=== PATIENT | female | born 2000 | race Caucasian/White ===

== ENCOUNTER 2024-10-14 07:38 | Emergency (ER) | payer MEDICAID, SELFPAY ==
[2024-10-14 07:40] VITALS: BMI 20.9
[2024-10-14 07:49] VITALS: BP 103/71; PULSE 92; RESP 18; TEMP 37.5; O2SAT 96; BMI 20.9
--- NOTE | 2024-10-14 07:59 | XR_ITS ---
Examination: PA lateral chest 2 views TECHNIQUE: Upright PA lateral chest 2 views Exam date and time: October 14, 2024 0831 hours INDICATIONS: Flu symptoms 3 days FINDINGS: Normal heart size No pneumonia or pulmonary edema Mild upper thoracic dextroscoliosis IMPRESSION: No pneumonia or pulmonary edema
[2024-10-14 08:49] LABS: Strep A Rapid Negative (Negative)
--- NOTE | 2024-10-14 09:43 | EDNOTE_ITS ---
<Statement entered by Yin Guerra MD - 10/25/24 06:19> As co-signing physician, I was present and available for consult prn. I concur with the plan and care as documented by the midlevel provider. Upper Respiratory Inf. RME/HPI General Chief Complaint: Flu Like Symptoms Stated Complaint: FLU SYMPTOMS X2 DAYS Time Seen by Provider: 10/14/24 07:46 Arrival date/time: 10/14/24 07:38 24-year-old female presents to the department today for complaint of cough, congestion runny nose ongoing for the last 2 days Limitations: no limitations Related Data Home Medications ?Medication ?Instructions ?Recorded ?Confirmed bupropion HCl 300 mg 24 hr tablet, 300 mg PO DAILY 08/2102/01/23 extended release empagliflozin 10 mg tablet 10 mg PO DAILY 02/01/2308/21 (Jardiance) levothyroxine 100 mcg tablet 100 mcg PO DAILY 02/01/23 02/01/23 norethindrone (contraceptive) 0.35 0.35 mg PO DAILY 02/01/23 mg tablet (Estela) Previous Rx's ?Medication ?Instructions ?Recorded fludrocortisone 0.1 mg tablet 0.1 mg PO QDAY 30 days # 30 tabs 02/05/23 hydrocortisone 10 mg tablet 10 mg PO QDAY 30 days #30 tabs 02/05/23 levofloxacin 500 mg tablet 500 mg PO QDAY #4 tabs 03/03 06/23 hydrocortisone 10 mg tablet 10 mg PO BID #30 tabs 07/30 10/22 albuterol sulfate 90 mcg/actuation 2 puff inhalation Q 6H PRN 10/14/24 aerosol inhaler (Ventolin HFA) shortness of breath or wheezing #8.5 grams benzonatate 100 mg capsule 100 mg PO TID #14 caps 09/29 11/23 Allergies Allergy/AdvReac Type Severity Reaction Status Date / Time piperacillin (From Zosyn) Allergy Rash Verified 11/28/23 18:30 tazobactam (From Zosyn) Allergy Rash Verified 11/28/23 18:30 Bee Stings Allergy Unknown SWELLING Uncoded 11/28/23 18:30 Review of Systems Review of Systems Systems Reviewed: All systems reviewed, normal except as documented Constitutional Constitutional: Reports system reviewed and no additional complaints, except as documented, Denies fever(s) and Denies headache(s) Eyes Eyes: Reports system reviewed and no additional complaints, except as documented and Denies blurry vision ENT Ears, Nose, Mouth, and Throat: Reports system reviewed and no additional complaints, except as documented, Denies headache(s), Reports nasal congestion and Reports nasal discharge Cardiovascular Cardiovascular: Reports system reviewed and no additional complaints, except as documented, Denies chest pain and Denies dyspnea Respiratory Respiratory: Reports system reviewed and no additional complaints, except as documented, Reports chest congestion, Reports cough and Denies dyspnea Gastrointestinal Gastrointestinal: Reports system reviewed and no additional complaints, except as documented and Denies abdominal pain Integumentary/Breasts Skin/Breast: Reports system reviewed and no additional complaints, except as documented and Denies rash Neurologic Neurologic: Reports system reviewed and no additional complaints, except as documented, Reports as per HPI and Denies headache(s) Past Medical History Past Medical History NEUROLOGIC: Negative Neurological Disorders CARDIAC: Positive Cardiac Disorders (CHF), Congestive Heart Failure and Hypotension RESPIRATORY: Positive Asthma; Negative Chronic Obstructive Pulmonary Disease (COPD) GASTROINTESTINAL: Negative Gastrointestinal Disorders or Hepatitis GENITOURINARY: Positive Renal Disease (sonja's disease); Negative Genitourinary Disorders REPRODUCTIVE: Positive Previous Pregnancies; Negative Pelvic Inflammatory Disease MUSCULOSKELETAL: Positive Musculoskeletal Disorders and Scoliosis ENDOCRINE: Positive Endocrine Disorders, Osco's Disease and Hypothyroidism; Negative Diabetes Mellitus Type 1 or Diabetes Mellitus Type 2 HEMATOLOGIC: Positive Blood Disorders and Anemia; Negative Sickle Cell Disease or Clotting Problems PSYCHO/SOCIAL: Positive Depression and Depression OTHER HISTORY: Positive Hospitalization and Blood Transfusions; Negative Autoimmune Disease, Down Syndrome, Developmental Delay, Shingles, Falls, Blood Transfusion Reaction, Anesthesia Reactions, Organ Transplant, Chemotherapy, Radiation Therapy, Hyperbaric Therapy, MRSA, Vancomycin-Resistant Enterococci, Human Immunodeficiency Virus (HIV), Chicken Pox, Measles, Mumps, Rubella ([place] Measles), Pertussis, Clostridium Difficile or Cancer Family History FAMILY HISTORY: Positive Family Psychiatric Problems, Family Cardiac Disorders and Family Cancer; Negative Family Respiratory Disorders, Family Gastrointestinal Problems, Family Surgery or Family Anesthesia Reaction Surgical History SURGICAL: Positive Cardiac Surgery; Negative Section or Organ Transplant Social History SMOKING STATUS: Never smoker ED Exam General Limitations: Present no limitations General appearance: Present alert and in no apparent distress Head Head exam: Present atraumatic Eye Eye exam: Present normal appearance, PERRL and EOMI; Absent conjunctival injection ENT ENT exam: Present normal exam, normal oropharynx and mucous membranes moist Neck Neck exam: Present normal inspection, full ROM and trachea midline Chest Chest inspection: Present normal inspection and symmetric chest wall rise Respiratory Respiratory exam: Present normal lung sounds bilaterally; Absent respiratory distress, wheezes, stridor, accessory muscle use or prolonged expiratory phase Cardiovascular Cardiovascular exam: Present regular rate, normal rhythm and normal heart sounds Abdominal Exam Abdominal exam: Present soft and normal bowel sounds Extremities Exam Extremities exam: Present normal inspection and full ROM Back Exam Back exam: Present normal inspection and full ROM Neurological Exam Neurological exam: Present alert, oriented X3 and CN II-XII intact Psychiatric Psychiatric exam: Present normal affect and normal mood Skin Skin exam: Present warm, dry, intact and normal color Course Quality Measures none Orders Category Date Time Status Bedside COVID-19 Antigen Test NOW Care 10/14/24 07:59 Completed Bedside Influenza A&B Antigen Test NOW Care 10/14/24 07:59 Completed XR chest 2V Stat Exams 10/14/24 07:59 Completed Strep A Rapid Stat Lab 10/14/24 08:04 Completed Vital Signs Vital signs: Vital Signs Temperature 99.5 F 10/14/24 07:49 Pulse Rate 92 10/14/24 07:49 Respiratory Rate 18 10/14/24 07:49 Blood Pressure 103/71 10/14/24 07:49 Pulse Oximetry (%) 96 10/14/24 07:49 Oxygen Delivery Method Room Air 10/14/24 07:49 O2 sats are 96% room air within limits Upper Respiratory Infection MDM Narrative MDM Narrative:: 24-year-old female presents to the department today for complaint of cough, congestion runny nose ongoing for the last 2 days On exam patient well-appearing patient does not appear ill or toxic in no acute distress On exam patient is no difficulty breathing no difficulty swallowing Patient discharged home in no distress to follow-up with primary care doctor in the next 24 to 48 hours and for any worsening symptoms to return to the ER immediately Patient data External records reviewed:: [facility] previous records Clinical information provided by:: patient Social determinants that could affect healthcare access:: none Patient has the following chronic illnesses:: CHF How is presenting disease/condition affected by chronic disease/condition?: uneffected by Evaluation data The following diagnostics were reviewed and interpreted by me:: lab results and radiology exam(s) Lab and/or radiology exams considered but not ordered:: Labs radiology obtained Interpretation Summary: Reviewed by me Medications / Prescriptions Medications or Prescriptions considered but not ordered:: Given Medication administrations:: Given Consultations Consultation(s) initiated? (list below): No Diagnosis Upper Respiratory Differential Diagnosis: upper respiratory infection Most likely diagnosis given after review of the tests above:: URI Admission Indicated Admission indicated?: not indicated Admission Request Was there a request for admission?: No Disposition Plan Disposition Plan: Discharge Discharge Attestation Discharge Attestation: The patient and all family members were given an opportunity to ask questions and understood the discharge instructions. Discharge instructions specifically effects, indications for sooner follow up or return to the emergency department, and the expected course of current diagnosis. Patient condition: Stable Discharge Plan Plan Patient Disposition: HOME (Self Care) Discharge Disposition comment: Stable Prescriptions/Referrals Prescriptions/Med Rec: New benzonatate 100 mg capsule 100 mg PO TID Qty: 14 0RF albuterol sulfate [Ventolin HFA] 90 mcg/actuation HFA aerosol inhaler 2 puff inhalation Q6H PRN (Reason: shortness of breath or wheezing) Qty: 8.5 0RF No Action levofloxacin 500 mg tablet 500 mg PO QDAY Qty: 4 0RF hydrocortisone 10 mg tablet 10 mg PO BID Qty: 30 0RF levothyroxine 100 mcg tablet 100 mcg PO DAILY norethindrone (contraceptive) [Setela] 0.35 mg tablet 0.35 mg PO DAILY Patient Comments: TAKE 1 TABLET BY MOUTH EVERY DAY FOR 28 DAYS bupropion HCl 300 mg tablet extended release 24 hr 300 mg PO DAILY Patient Comments: TAKE 1 TABLET BY MOUTH EVERY DAY IN THE MORNING FOR 30 DAYS Jardiance 10 mg tablet 10 mg PO DAILY Patient Comments: TAKE 1 TABLET BY MOUTH ONCE EVERY MORNING FOR 90 DAYS fludrocortisone 0.1 mg tablet 0.1 mg PO QDAY 30 Days Qty: 30 2RF hydrocortisone 10 mg tablet 10 mg PO QDAY 30 Days Qty: 30 2RF Referrals: No Primary/Family,Physician [Primary Care Provider] - 10/17/24 Problem List Clinical Impression: URI (upper respiratory infection) Patient/Caregiver Discharge Instructions Education Materials: ED URI, Viral, No Abx (Adult) Additional Instructions: Please follow up with your primary care doctor in the next 24-48hrs for any worsening symptoms return here immediately Print Language: Nauruan Stand Alone Forms: Nirmala Mortensen Info., Work/School Release, Patient Portal Info Letter PA/[employer] DIVISION MANAGER Supervising Physician PA/[employer] DIVISION MANAGER Supervising Physician: Dr. Guerra
== END 2024-10-14 10:04 | disposition home or self-care (01) ==
PROVIDERS: Nurse Practitioner Primary Care; Emergency Provider Emergency Medicine
DX: J06.9 Acute upper respiratory infection, unspecified (principal)
CPT/HCPCS: 71046; 87400; 87651; 87811; 99283

== ENCOUNTER 2024-11-25 06:19 | Emergency (ER) | payer MEDICAID, SELFPAY ==
[2024-11-25 06:30] VITALS: BMI 21.7
[2024-11-25 06:31] VITALS: BP 59/34; PULSE 77; RESP 20; TEMP 36.4; O2SAT 96
--- NOTE | 2024-11-25 06:40 | PD.EDRME ---
Rapid Medical Screening Exam RME Arrival date/time: 11/25/24 06:19 24-year-old female with a history of Jose Ramon's disease, hypothyroidism, presents to the emergency room with a chief complaint of vomiting, diffuse 8 out of 10 abdominal pain, and weakness x 2 days I have greeted and performed a focused initial assessment of this patient. A comprehensive ED assessment and evaluation of the patient, analysis of all test results, and completion of the medical decision making process will be conducted by additional ED providers. Chief Complaint: Nausea/Vomiting/Diarrhea Time Seen by Provider: 11/25/24 06:20 Vital signs: Vital Signs Temperature 97.6 F 11/25/24 06:31 Pulse Rate 77 11/25/24 06:31 Respiratory Rate 20 11/25/24 06:31 Blood Pressure 59/34 L 11/25/24 06:31 Pulse Oximetry (%) 96 11/25/24 06:31 Oxygen Delivery Method Room Air 11/25/24 06:31 Vital signs reviewed by provider: Yes
--- NOTE | 2024-11-25 06:42 | EKG_ITS ---
[facility] Test Date: 2024-11-25 Pat Name: CATRINA VALDERRAMA Department: Room: - Gender: Female Entry Level Buyer: : 2000 Requested By: Murtaza Fisher Order Number: [id number] Reading MD: Murtaza Fisher Measurements Intervals [place] Rate: 87 P: 18 [place]: 171 QRS: 89 QRSD: 99 T: -16 QT: 405 QTc: 489 Interpretive Statements SINUS RHYTHM ST DEVIATION AND MODERATE T-WAVE ABNORMALITY, CONSIDER ANTEROLATERAL ISCHEMIA [-0.1+ mV T-WAVE IN V3-V6] Compared to ECG 03/31/2023 00:09:02 Incomplete right bundle-branch block no longer present T-wave abnormality still present Possible ischemia still present /store/S0/[id number]/ecg/[id number].pdf
[2024-11-25] MEDS: ONDANSETRON INJ 2 MG/ML INJ 2 ML 4 MG IVP ×2 (06:52→07:32)
[2024-11-25] MEDS: SODIUM CHLORIDE 0.9% 1000 ML 1,000 ML 999 ML IV (06:53)
[2024-11-25 06:54] VITALS: BP 75/48; PULSE 79; RESP 15; TEMP 36.4
--- NOTE | 2024-11-25 06:56 | PC.NURSE ---
DR MEDINA AT BEDSIDE TO ASSESS PATIENT FOR LOW BP OF 80/48.
--- NOTE | 2024-11-25 07:09 | XR_ITS ---
Examination: CT abdomen with intravenous contrast CT pelvis with intravenous contrast 2-D coronal reconstructions 2-D sagittal reconstructions Date and time of exam:November 25, 2024 at 0744 hours Comparison November 28, 2023 INDICATIONS: Lower abdominal pain and vomiting beginning this morning CTDI: vol (mGy) 5.99 DLP: (mGycm) 319 Technique: Multiple axial sections of the abdomen and pelvis have been obtained. 64 slice high-resolution scanner used. 3 mm axial sections have been obtained, post intravenous injection 60 cc [id number] 2-D sagittal, coronal reconstructions obtained. Low dose protocols were performed. One or more of the following dose reduction techniques were used; automated exposure control, adjustment of the mA and/or KV according to patient size, use of iterative reconstruction technique. Findings: No focal liver lesions AP splenic dimension 13 cm No gallstones No pancreatic mass No renal or ureteral calculi, no hydronephrosis Aorta normal size The appendix is fluid-filled, coronal image 50 and measures up to 6 mm in thickness but without definite inflammatory change There is no pericecal inflammatory change Mild small bowel ileus Anteverted uterus no pelvic mass Contracted urinary bladder Mild disc narrowing posteriorly at L5-S1 IMPRESSION: Mild splenomegaly The appendix is fluid-filled and measures up to 6 mm in thickness but without definite inflammatory change, no pericecal inflammatory change, the appearance should be clinically correlated
[2024-11-25 07:10] LABS: Basophils % (Auto) 0 % (0-2.5); Eosinophils # (Auto) 0.1 Thou/mm3 (0.0-0.5); Eosinophils % (Auto) 1 % (0-10); Hematocrit 41.9 % (36.0-46.0); Hemoglobin 15.2 g/dL (12.0-16.0); Immature Granulocytes % (Auto) 0 % (0-0); Immature Granulocytes Auto 0.03 Thou/mm3 (0.00-0.00); Lymphocytes # (Auto) 0.7 Thou/mm3 (1.0-4.8); Lymphocytes % (Auto) 7 % (10-50); Mean Corpuscular HGB Conc 36.3 g/dl (31.0-37.0); Mean Corpuscular Hemoglobin 31.5 pg (25.0-35.0); Mean Corpuscular Volume 87 fL (80-100); Monocytes # (Auto) 0.4 Thou/mm3 (0.0-0.8); Monocytes % (Auto) 4 % (0-12); Neutrophils # (Auto) 9.2 Thou/mm3 (1.8-7.7); Neutrophils % (Auto) 88 % (37-80); Nucleated Red Blood Cell % 0 /100 WBC (0); Platelet Count 310 Thou/mm3 (140-440); RDW Standard Deviation 39.5 fL (36.4-46.3); Red Blood Count 4.82 Miln/mm3 (4.00-5.20); White Blood Count 10.5 Thou/mm3 (3.6-11.0)
[2024-11-25] MEDS: MORPHINE SULF INJ 10 MG/ML VIAL 4 MG IVP (07:22)
[2024-11-25 07:26] LABS: HCG,Qualitative Serum Negative
[2024-11-25] MEDS: HYDROCORTISONE SOD SUCC INJ 100 MG VIAL IV (07:28)
[2024-11-25 07:30] LABS: Alanine Aminotransferase 35 U/L (10-49); Albumin, Serum 4.8 gm/dL (3.5-5.0); Albumin/Globulin Ratio 1.7 (1.2-2.2); Alkaline Phosphatase 87 U/L (46-116); Anion Gap 11 (7-16); Aspartate Amino Transferase 40 U/L (0-34); BUN/Creatinine Ratio 9 Ratio (12-20); Bilirubin,Total 0.6 mg/dL (0.3-1.2); Blood Urea Nitrogen 10 mg/dL (9-23); Calcium 9.4 mg/dL (8.3-10.6); Calcium (Corrected) 9.4 mg/dL (8.5-10.1); Carbon Dioxide 23.3 mMol/L (20.0-31.0); Chloride 102 mMol/L (98-107); Creatinine (Component) 1.1 mg/dL (0.6-1.3); Estimated Creatinine Clearance 72.6 mL/min (>60); Globulin 2.9 gm/dL (2.3-3.5); Glucose 103 mg/dL (74-106); Lipase 34 U/L (12-53); Magnesium 1.8 mg/dL (1.6-2.6); Osmolality,Calculated 270 (275-295); Sodium 136 mMol/L (136-145); Total Protein 7.7 gm/dL (5.7-8.2); Troponin I < 0.002 ng/mL (0.0-0.045); eGFR > 60 See Note
[2024-11-25 07:54] LABS: B-Type Natriuretic Peptide < 20 pg/mL (0-100)
[2024-11-25 08:10] VITALS: BP 89/60; PULSE 87; RESP 16; TEMP 37.4; O2SAT 98
--- NOTE | 2024-11-25 08:28 | PD.EDABDPN ---
ED Abdominal Pain RME/HPI General Chief Complaint: Nausea/Vomiting/Diarrhea Stated complaint: VOMITING, ABD PAIN Time seen by provider: 11/25/24 06:20 Arrival date/time: 11/25/24 06:19 Limitations: no limitations RME / HPI RME / HPI narrative: 11/25/24 06:19 24-year-old female with a history of Jose Ramon's disease, hypothyroidism, presents to the emergency room with a chief complaint of vomiting, diffuse 8 out of 10 abdominal pain, and weakness x 2 days I have greeted and performed a focused initial assessment of this patient. A comprehensive ED assessment and evaluation of the patient, analysis of all test results, and completion of the medical decision making process will be conducted by additional ED providers. DR. SAHA MAIN ED EVALUATION: 24 year old female with history of Jose Ramon's disease, CHF following in 2021, hypothyroidism, presents to the ED for evaluation of abdominal pain, nausea, and vomiting (about 10 times) beginning yesterday. Patient describes pain as aching in sensation that is located most mid to lower abdomen without radiation, rating as moderate. Patient additionally complains of pain to her whole body . Denies fevers, chills, chest pain, cough, shortness of breath, diarrhea, or urinary symptoms. Patient mentioned due to nausea and vomiting, she had been unable to take her Hydrocortisone in the last day. Related Data Home Medications ?Medication ?Instructions ?Recorded ?Confirmed bupropion HCl 300 mg 24 hr tablet, 300 mg PO DAILY 02/01/23 02/01/23 extended release empagliflozin 10 mg tablet 10 mg PO DAILY 02/01/23 02/01/23 (Jardiance) levothyroxine 100 mcg tablet 100 mcg PO DAILY 02/01/23 02/01/23 norethindrone (contraceptive) 0.35 0.35 mg PO DAILY 02/01/23 02/01/23 mg tablet (Estela) Previous Rx's ?Medication ?Instructions ?Recorded fludrocortisone 0.1 mg tablet 0.1 mg PO QDAY 30 days #30 tabs 02/05/23 hydrocortisone 10 mg tablet 10 mg PO QDAY 30 days #30 tabs 02/05/23 levofloxacin 500 mg tablet 500 mg PO QDAY #4 tabs 03/31/23 hydrocortisone 10 mg tablet 10 mg PO BID #30 tabs 08/14/23 albuterol sulfate 90 mcg/actuation 2 puff inhalation Q6H PRN 10/14/24 aerosol inhaler (Ventolin HFA) shortness of breath or wheezing #8.5 grams benzonatate 100 mg capsule 100 mg PO TID #14 caps 10/14/24 ondansetron 4 mg disintegrating 4 mg PO Q8H PRN nausea and 11/25/24 tablet vomiting #20 tabs Allergies Allergy/AdvReac Type Severity Reaction Status Date / Time piperacillin (From Zosyn) Allergy Rash Verified 11/28/23 18:30 tazobactam (From Zosyn) Allergy Rash Verified 11/28/23 18:30 Bee Stings Allergy Unknown SWELLING Uncoded 11/28/23 18:30 Review of Systems Review of Systems Systems Reviewed: All systems reviewed, normal except as documented Past Medical History Past Medical History CARDIAC: Positive Congestive Heart Failure and Hypotension RESPIRATORY: Positive Asthma REPRODUCTIVE: Positive Previous Pregnancies MUSCULOSKELETAL: Positive Musculoskeletal Disorders and Scoliosis ENDOCRINE: Positive Endocrine Disorders, Jose Ramon's Disease and Hypothyroidism HEMATOLOGIC: Positive Blood Disorders and Anemia PSYCHO/SOCIAL: Positive Depression and Depression OTHER HISTORY: Positive Hospitalization and Blood Transfusions Family History FAMILY HISTORY: Positive Family Psychiatric Problems, Family Cardiac Disorders and Family Cancer Surgical History SURGICAL: Positive Cardiac Surgery; Negative Section Social History SMOKING STATUS: Never smoker ED Exam General Limitations: Present no limitations General appearance: Present alert and in no apparent distress Head Head exam: Present atraumatic and normocephalic Eye Eye exam: Present normal appearance, PERRL and EOMI ENT ENT exam: Present normal exam, normal oropharynx and mucous membranes dry Neck Neck exam: Present normal inspection, full ROM and trachea midline Chest Chest inspection: Present normal inspection and symmetric chest wall rise Respiratory Respiratory exam: Present normal lung sounds bilaterally Cardiovascular Cardiovascular exam: Present regular rate, normal rhythm and normal heart sounds Abdominal Exam Abdominal exam: Present soft, tenderness (to the lower abdomen ) and normal bowel sounds Extremities Exam Extremities exam: Present normal inspection and full ROM Back Exam Back exam: Present normal inspection and full ROM Neurological Exam Neurological exam: Present alert, oriented X3 and CN II-XII intact Psychiatric Psychiatric exam: Present normal affect and normal mood Skin Skin exam: Present warm, dry, intact and normal color Course Quality Measures none Orders Category Date Time Status CT Screening NOW Care 11/25/24 07:09 Active EKG (ED ONLY) *Do not use* NOW Care 11/25/24 06:42 Completed IV [Insert IV] STAT Care 11/25/24 06:[address] abdomen pelvis w con Stat Exams 11/25/24 07:09 Completed EKG (ED Only) Stat Exams 11/25/24 06:42 Draft B-Type Natriuretic Peptide Stat Lab 11/25/24 07:00 Completed CBC Stat Lab 11/25/24 07:00 Completed Comprehensive Metabolic Panel Stat Lab 11/25/24 07:00 Completed Drug Screen,Urine Stat Lab 11/25/24 09:26 Completed HCG,Qualitative Serum Stat Lab 11/25/24 07:00 Completed Lipase Stat Lab 11/25/24 07:00 Completed Magnesium Stat Lab 11/25/24 07:00 Completed Troponin I Stat Lab 11/25/24 07:00 Completed Urinalysis Stat Lab 11/25/24 09:26 Received Urine Culture Stat Lab 11/25/24 09:26 Received Hydrocortisone Sod Succ Inj [SoluCORTEF Inj] Med 11/25/24 07:09 Discontinued 100 mg IV X1 ONE Morphine Inj Med 11/25/24 07:09 Discontinued 4 mg IVP X1 ONE Ondansetron Inj [Zofran Inj] Med 11/25/24 06:43 Discontinued 4 mg IVP X1 ONE Ondansetron Inj [Zofran Inj] Med 11/25/24 07:26 Discontinued 4 mg IVP X1 ONE Sodium Chloride 0.9% 1000 ml [Ns] 1,000 ml Med 11/25/24 06:43 Discontinued IV 999 mls/hr Vital Signs Vital signs: Vital Signs Temperature 97.6 F 11/25/24 06:31 Pulse Rate 77 11/25/24 06:31 Respiratory Rate 20 11/25/24 06:31 Blood Pressure 59/34 L 11/25/24 06:31 Pulse Oximetry (%) 96 11/25/24 06:31 Oxygen Delivery Method Room Air 11/25/24 06:31 Pulse ox is 96% on room air which is adequate. Abdominal Pain MDM MDM Narrative MDM Narrative:: [place]ortney, mo scribing for and in the presence of Dr. Saha. Plan: IV fluids, 100gm Hydrocortisone, pain control, nausea control, CT scan abd/pelvis, cardiac work up. On reassessment at 09:10 AM, the patient reports feeling better and requesting to eat. Discussed CT abdomen results which show a fluid filled 6mm appendix which is not enlarged. Attempted to reassess abdomen. However, bladder is full at this time. On reassessment at 10:10 AM, the patient has positive rebound tenderness to the right lower quadrant and appendicitis is a possibility. Will consult with general surgeon. I spoke with general surgeon Dr. Small at 10:15 AM. Discussed patients PMHx, HPI, ED course, exam findings, labs, and radiology results. States at this time it is not acute appendicitis and the patient has been discharged home. I spoke with the patient and advised she take 100mg of Hydrocortisone tomorrow if she continues to have nausea and vomiting. Symptoms and labs today suggestive of acute gastroenteritis with mild [place]'s crisis. Plan to DC home with Jordy and have her follow up with PCP within 2-3 days. Patient data External records reviewed:: [facility] previous records (I reviewed ED visit on 10/14/2022 for URI ) Clinical information provided by:: patient Social determinants that could affect healthcare access:: alcohol use (Occasional use ) Patient has the following chronic illnesses:: Jose Ramon's disease, CHF following in 2021, hypothyroidism How is presenting disease/condition affected by chronic disease/condition?: exacerbated by Evaluation data The following diagnostics were reviewed and interpreted by me:: lab results, radiology exam(s) and EKG tracing(s) (11/25/2024 @ 6:51. NSR, HR 87, right axis deviation, incomplete right bundle branch block, T-wave inversion in the inferior and anterior leads ) Lab and/or radiology exams considered but not ordered:: None Interpretation Summary: Ordering Physician: Pasha Mcgill MD Date of Service: 11/25/24 Procedure(s): CT abdomen pelvis w con Accession Number(s): [id number] cc: Pasha Mcgill MD; Paul Betancourt MD; Dorinda Jamison MD~ Examination: CT abdomen with intravenous contrast CT pelvis with intravenous contrast 2-D coronal reconstructions 2-D sagittal reconstructions Date and time of exam:November 25, 2024 at 0744 hours Comparison November 28, 2023 INDICATIONS: Lower abdominal pain and vomiting beginning this morning CTDI: vol (mGy) 5.99 DLP: (mGycm) 319 Technique: Multiple axial sections of the abdomen and pelvis have been obtained. 64 slice high-resolution scanner used. 3 mm axial sections have been obtained, post intravenous injection 60 cc [id number] 2-D sagittal, coronal reconstructions obtained. Low dose protocols were performed. One or more of the following dose reduction techniques were used; automated exposure control, adjustment of the mA and/or KV according to patient size, use of iterative reconstruction technique. Findings: No focal liver lesions AP splenic dimension 13 cm No gallstones No pancreatic mass No renal or ureteral calculi, no hydronephrosis Aorta normal size The appendix is fluid-filled, coronal image 50 and measures up to 6 mm in thickness but without definite inflammatory change There is no pericecal inflammatory change Mild small bowel ileus Anteverted uterus no pelvic mass Contracted urinary bladder Mild disc narrowing posteriorly at L5-S1 IMPRESSION: Mild splenomegaly The appendix is fluid-filled and measures up to 6 mm in thickness but without definite inflammatory change, no pericecal inflammatory change, the appearance should be clinically correlated Dictated By: Paul Betancourt MD Signed By: <Electronically signed by Paul Betancourt MD in OV>11/25/24 0813 Medications / Prescriptions Medications or Prescriptions considered but not ordered:: None Medication administrations:: Medication Administration History Discontinued Medications Hydrocortisone Sodium Succinate (Hydrocortisone Sod Succ Inj 100 Mg Vial) 100 mg IV X1 ONE Stop: 11/25/24 07:10 Last Admin: 11/25/24 07:28 Dose: 100 mg Documented By: MARYJANE Sodium Chloride (Ns) 1,000 mls @ 999 mls/hr IV .Q1H1M ONE Stop: 11/25/24 07:43 Last Infusion: 11/25/24 08:35 Dose: Infused Documented By: Admin: 11/25/24 06:53 Dose: 999 mls/hr Documented By: CORINE Morphine Sulfate (Morphine Sulf Inj 10 Mg/Ml Vial) 4 mg IVP X1 ONE Stop: 11/25/24 07:10 Last Admin: 11/25/24 07:22 Dose: 4 mg Documented By: MARYJANE Ondansetron HCl (Ondansetron Inj 2 Mg/Ml Inj 2 Ml) 4 mg IVP X1 ONE; Protocol Stop: 11/25/24 06:44 Last Admin: 11/25/24 06:52 Dose: 4 mg Documented By: CORINE Ondansetron HCl (Ondansetron Inj 2 Mg/Ml Inj 2 Ml) 4 mg IVP X1 ONE; Protocol Stop: 11/25/24 07:27 Last Admin: 11/25/24 07:32 Dose: 4 mg Documented By: DB See above Consultations Consultation(s) initiated? (list below): Yes Consultation #1 (Physician, Specialty, Details): I spoke with general surgeon Dr. Small as noted above. Time: 10:15 Diagnosis Differential diagnosis abdominal pain: abdominal pain, calculus of kidney, constipation and other (gastroenteritis, viral vs bacterial enteritis, dehydration, Jose Ramon's disease crisis ) Most likely diagnosis given after review of the tests above:: Dehydration Electrolyte imbalance Addisons disease Gastroenteritis Admission Indicated Admission indicated?: not indicated Admission Request Was there a request for admission?: No Disposition Plan Disposition Plan: Discharge Discharge Attestation Discharge Attestation: The patient and all family members were given an opportunity to ask questions and understood the discharge instructions. Discharge instructions specifically effects, indications for sooner follow up or return to the emergency department, and the expected course of current diagnosis. Patient condition: Stable Discharge Plan Plan Patient Disposition: HOME (Self Care) Prescriptions/Referrals Prescriptions/Med Rec: New ondansetron 4 mg tablet,disintegrating 4 mg PO Q8H PRN (Reason: nausea and vomiting) Qty: 20 0RF No Action levofloxacin 500 mg tablet 500 mg PO QDAY Qty: 4 0RF hydrocortisone 10 mg tablet 10 mg PO BID Qty: 30 0RF benzonatate 100 mg capsule 100 mg PO TID Qty: 14 0RF albuterol sulfate [Ventolin HFA] 90 mcg/actuation HFA aerosol inhaler 2 puff inhalation Q6H PRN (Reason: shortness of breath or wheezing) Qty: 8.5 0RF levothyroxine 100 mcg tablet 100 mcg PO DAILY norethindrone (contraceptive) [Estela] 0.35 mg tablet 0.35 mg PO DAILY Patient Comments: TAKE 1 TABLET BY MOUTH EVERY DAY FOR 28 DAYS bupropion HCl 300 mg tablet extended release 24 hr 300 mg PO DAILY Patient Comments: TAKE 1 TABLET BY MOUTH EVERY DAY IN THE MORNING FOR 30 DAYS Jardiance 10 mg tablet 10 mg PO DAILY Patient Comments: TAKE 1 TABLET BY MOUTH ONCE EVERY MORNING FOR 90 DAYS fludrocortisone 0.1 mg tablet 0.1 mg PO QDAY 30 Days Qty: 30 2RF hydrocortisone 10 mg tablet 10 mg PO QDAY 30 Days Qty: 30 2RF Referrals: Dorinda Jamison MD [Primary Care Provider] - In 1 week Problem List Clinical Impression: Dehydration, Electrolyte imbalance, Addisons disease, Gastroenteritis Patient/Caregiver Discharge Instructions Print Language: [place] Stand Alone Forms: Nirmala Award Info., Patient Portal Info Letter
[2024-11-25 09:43] LABS: Collection Type, Urine Clean Catch
[2024-11-25 10:12] LABS: Amphetamine/Methamp Scrn,U Negative (Negative); Barbiturate Screen,Urine Negative (Negative); Benzodiazepines Screen,Urine Negative (Negative); Benzoylecgonine Screen, Ur Negative (Negative); Fentanyl Screen,Urine Negative (Negative); Opiate Screen,Urine Positive (Negative); THC Screen,Urine Negative (Negative)
[2024-11-25 10:15] LABS: Bilirubin,Urine Negative (Negative); Blood,Urine 1+ (Negative); Clarity,Urine Clear (Clear/Hazy); Color,Urine Yellow (Lt Yel-Yel); Glucose, Urine Negative (Negative); Ketones,Urine Negative (Negative); Leukocyte Esterase,Urine Positive (Negative); Nitrite,Urine Negative (Negative); Protein,Urine Negative (Neg - Trace); RBC,Urine 9 /hpf (0-3); Squamous Epithelial Cell,Urine 3 /hpf (0-5); WBC,Urine 3 /hpf (0-5)
[2024-11-25 10:17] VITALS: BP 93/57; PULSE 87; RESP 17; TEMP 37.4; O2SAT 95
[2024-11-25 10:40] VITALS: BP 92/58; PULSE 68; RESP 16; TEMP 37.2; O2SAT 100
[2024-11-25 11:01] LABS: Specific Gravity,Urine 1.005 (1.001-1.035)
== END 2024-11-25 10:42 | disposition home or self-care (01) ==
PROVIDERS: Nurse Practitioner Family; Emergency Provider Emergency Medicine; PCP Family Medicine
DX: E86.0 Dehydration (principal); E87.8 Other disorders of electrolyte and fluid balance, not elsewhere classified; E27.1 Primary adrenocortical insufficiency; K52.9 Noninfective gastroenteritis and colitis, unspecified; R16.1 Splenomegaly, not elsewhere classified; R94.31 Abnormal electrocardiogram [ECG] [EKG]
CPT/HCPCS: 36415; 74177; 80053; 80307; 81001; 83690; 83735; 83880; 84484; 84703; 85025; 87086; 93005; 96361; 96374; 96375; 99285; A4649; J1720; J2270; J2405; J7030; Q9967

== ENCOUNTER 2024-12-17 08:29 | Emergency (ER) | payer MEDICAID, SELFPAY ==
--- NOTE | 2024-12-17 08:34 | EKG_ITS ---
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: : 2000 Requested By: Lola Dunaway ([facility]) Anisha Order Number: [id number] Reading MD: Lola Dunaway ([facility]) Anisha Measurements Intervals [place] Rate: 94 P: 29 CO: 175 QRS: 82 QRSD: 102 T: -72 QT: 401 QTc: 502 Interpretive Statements SINUS RHYTHM INCOMPLETE RIGHT BUNDLE BRANCH BLOCK [90+ ms QRS DURATION, TERMINAL R IN V1/V2, 40+ ms S IN I/aVL/V4/V5/V6] ST DEVIATION AND MODERATE T-WAVE ABNORMALITY, CONSIDER ANTEROLATERAL ISCHEMIA [-0.1+ mV T-WAVE IN V3-V6] ST DEVIATION AND MODERATE T-WAVE ABNORMALITY, CONSIDER INFERIOR ISCHEMIA [-0.1+ mV T-WAVE IN II/aVF] Compared to ECG 11/25/2024 06:51:49 Incomplete right bundle-branch block now present T-wave abnormality still present Possible ischemia still present /store/S0/[id number]/ecg/[id number].pdf
[2024-12-17 08:48] VITALS: BP 84/58; BP 85/59; PULSE 93; RESP 20; TEMP 36.8; O2SAT 98; BMI 21.1
--- NOTE | 2024-12-17 08:50 | XR_ITS ---
Examination: AP chest single view Technique: AP portable semiupright chest single view Date and time: December 17, 2024, 0946 hrs., Comparison October 14, 2024 Indications: Shortness of breath chest pain beginning 2 days ago Findings: Normal heart size taking into account portable technique Mild vascular congestion. No lobar pneumonia or pulmonary edema Impression: Mild vascular congestion.
--- NOTE | 2024-12-17 08:51 | PD.EDRME ---
Rapid Medical Screening Exam RME Arrival date/time: 12/17/24 08:29 24-year-old female presents emergency department with acute chest pain and shortness of breath history of CHF. I have greeted and performed a focused initial assessment of this patient. Initial appropriate labs ordered at this time. A comprehensive ED assessment and evaluation of the patient and analysis of all test and completion of medical decision making process will be conducted by additional ED provider. Chief Complaint: Chest Pain Vital signs: Vital Signs Temperature 98.2 F 12/17/24 08:48 Pulse Rate 93 12/17/24 08:48 Respiratory Rate 20 12/17/24 08:48 Blood Pressure 85/59 L 12/17/24 08:48 Pulse Oximetry (%) 98 12/17/24 08:48 Oxygen Delivery Method Room Air 12/17/24 08:48
[2024-12-17 09:06] VITALS: RESP 99
--- NOTE | 2024-12-17 09:09 | PD.EDCHEST ---
ED Chest Pain RME/HPI General Chief Complaint: Chest Pain Stated Complaint: Heart failure, chest pain, back pain Arrival date/time: 12/17/24 08:29 Limitations: no limitations RME / HPI RME / HPI narrative: 12/17/24 08:29 24-year-old female presents emergency department with acute chest pain and shortness of breath history of CHF. I have greeted and performed a focused initial assessment of this patient. Initial appropriate labs ordered at this time. A comprehensive ED assessment and evaluation of the patient and analysis of all test and completion of medical decision making process will be conducted by additional ED provider. DR. 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 Patient has a history of retained placenta following a prior , which led to an infection and ultimately endocarditis. She now carries a diagnosis of CHF. Patient reports alcohol use. Related Data Home Medications ?Medication ?Instructions ?Recorded ?Confirmed bupropion HCl 300 mg 24 hr tablet, 300 mg PO DAILY 02/01/23 02/01/23 extended release empagliflozin 10 mg tablet 10 mg PO DAILY 02/01/23 02/01/23 (Jardiance) levothyroxine 100 mcg tablet 100 mcg PO DAILY 02/01/23 02/01/23 norethindrone (contraceptive) 0.35 0.35 mg PO DAILY 02/01/23 02/01/23 mg tablet (Estela) Previous Rx's ?Medication ?Instructions ?Recorded fludrocortisone 0.1 mg tablet 0.1 mg PO QDAY 30 days #30 tabs 02/05/23 hydrocortisone 10 mg tablet 10 mg PO QDAY 30 days #30 tabs 02/05/23 levofloxacin 500 mg tablet 500 mg PO QDAY #4 tabs 03/31/23 hydrocortisone 10 mg tablet 10 mg PO BID #30 tabs 08/14/23 albuterol sulfate 90 mcg/actuation 2 puff inhalation Q6H PRN 10/14/24 aerosol inhaler (Ventolin HFA) shortness of breath or wheezing #8.5 grams benzonatate 100 mg capsule 100 mg PO TID #14 caps 10/14/24 ondansetron 4 mg disintegrating 4 mg PO Q8H PRN nausea and 11/25/24 tablet vomiting #20 tabs Allergies Allergy/AdvReac Type Severity Reaction Status Date / Time piperacillin (From Zosyn) Allergy Rash Verified 12/17/24 08:33 tazobactam (From Zosyn) Allergy Rash Verified 12/17/24 08:33 Bee Stings Allergy Unknown SWELLING Uncoded 12/17/24 08:33 Review of Systems Review of Systems Systems Reviewed: All systems reviewed, normal except as documented Past Medical History Past Medical History CARDIAC: Positive Congestive Heart Failure and Hypotension RESPIRATORY: Positive Asthma REPRODUCTIVE: Positive Previous Pregnancies MUSCULOSKELETAL: Positive Musculoskeletal Disorders and Scoliosis ENDOCRINE: Positive Endocrine Disorders, [place]'s Disease and Hypothyroidism HEMATOLOGIC: Positive Blood Disorders and Anemia PSYCHO/SOCIAL: Positive Depression and Depression OTHER HISTORY: Positive Hospitalization and Blood Transfusions Family History FAMILY HISTORY: Positive Family Psychiatric Problems, Family Cardiac Disorders and Family Cancer Surgical History SURGICAL: Positive Cardiac Surgery; Negative Section Social History SMOKING STATUS: Never smoker SUBSTANCE USE: does not use ALCOHOL: Never ED Exam General Limitations: Present no limitations General appearance: Present alert and in no apparent distress Head Head exam: Present atraumatic, normocephalic and normal inspection Eye Eye exam: Present normal appearance, PERRL and EOMI ENT ENT exam: Present normal exam, normal oropharynx and mucous membranes moist Neck Neck exam: Present normal inspection, full ROM and trachea midline Chest Chest inspection: Present normal inspection and symmetric chest wall rise Respiratory Respiratory exam: Present normal lung sounds bilaterally Cardiovascular Cardiovascular exam: Present regular rate, normal rhythm and normal heart sounds Abdominal Exam Abdominal exam: Present soft and normal bowel sounds Extremities Exam Extremities exam: Present normal inspection and full ROM Back Exam Back exam: Present normal inspection and full ROM Neurological Exam Neurological exam: Present alert, oriented X3 and CN II-XII intact Psychiatric Psychiatric exam: Present normal affect and normal mood Skin Skin exam: Present warm, dry, intact and normal color Course Quality Measures none Orders Category Date Time Status Head Turbine Operator STAT Care 12/17/24 08:50 Active Continuous Pulse Oximetry ONCE Care 12/17/24 08:50 Completed EKG (ED ONLY) *Do not use* NOW Care 12/17/24 08:35 Active Insert IV STAT Care 12/17/24 08:50 Active EKG (ED Only) Stat Exams 12/17/24 08:34 Draft XR chest 1V portable Stat Exams 12/17/24 08:50 Completed Alcohol, Blood Medical Stat Lab 12/17/24 09:15 Completed B-Type Natriuretic Peptide Stat Lab 12/17/24 09:15 Completed CBC Stat Lab 12/17/24 09:15 Completed Comprehensive Metabolic Panel Stat Lab 12/17/24 09:15 Completed Drug Screen,Urine Stat Lab 12/17/24 09:13 Ordered HCG,Qualitative Serum Stat Lab 12/17/24 09:15 Completed Lipase Stat Lab 12/17/24 09:15 Completed Magnesium Stat Lab 12/17/24 09:15 Completed Partial Thromboplastin Time Stat Lab 12/17/24 09:15 Completed Prothrombin Time with INR Stat Lab 12/17/24 09:15 Completed Troponin I Stat Lab 12/17/24 09:15 Completed Sodium Chloride 0.9% 500 ml [Ns] 500 ml Med 12/17/24 09:08 Discontinued IV 999 mls/hr Sodium Chloride 0.9% 500 ml [Ns] 500 ml Med 12/17/24 09:11 Discontinued IV 999 mls/hr Oxygen Delivery NOW RT 12/17/24 08:50 Active Vital Signs Vital signs: Vital Signs Temperature 98.2 F 12/17/24 08:48 Pulse Rate 93 12/17/24 08:48 Respiratory Rate 20 12/17/24 08:48 Blood Pressure 85/59 L 12/17/24 08:48 Pulse Oximetry (%) 98 12/17/24 08:48 Oxygen Delivery Method Room Air 12/17/24 08:48 Chest Pain MDM Narrative MDM Narrative:: I, Suzi Seymour, am scribing for and in the presence of Dr. Figueroa. CXR shows vascular congestion but it is stable. CHF but compensated. Plan to discharge with shortness of breath, dyspnea, and compensated CHF. Patient data External records reviewed:: [facility] previous records Clinical information provided by:: patient Social determinants that could affect healthcare access:: alcohol use Patient has the following chronic illnesses:: Patient has a history of retained placenta following a prior , which led to an infection and ultimately endocarditis. She now carries a diagnosis of CHF. How is presenting disease/condition affected by chronic disease/condition?: exacerbated by Evaluation data The following diagnostics were reviewed and interpreted by me:: lab results, radiology exam(s) and EKG tracing(s) Lab and/or radiology exams considered but not ordered:: none Interpretation Summary: My interpretation: EKG performed at 0840 hours, sinus rhythm, rate 94, lots of T wave inversions, no STEMI Procedure(s): XR chest 1V portable Accession Number(s): [id number] cc: Paul Betancourt MD; NO PRIMARY/FAMILY,PHYSICIAN; Emelyn ([facility])Lola~ Examination: AP chest single view Technique: AP portable semiupright chest single view Date and time: December 17, 2024, 0946 hrs., Comparison October 14, 2024 Indications: Shortness of breath chest pain beginning 2 days ago Findings: Normal heart size taking into account portable technique Mild vascular congestion. No lobar pneumonia or pulmonary edema Impression: Mild vascular congestion. Dictated By: Paul Betancourt MD Medications / Prescriptions Medications or Prescriptions considered but not ordered:: none Medication administrations:: Medication Administration History Discontinued Medications Sodium Chloride (Ns) 500 mls @ 999 mls/hr IV .Q31M ONE Stop: 12/17/24 09:38 Last Admin: 12/17/24 09:33 Dose: Not Given Documented By: HAROLDO Non-Admin Reason: Duplicate Medication on eMAR Sodium Chloride (Ns) 500 mls @ 999 mls/hr IV .Q31M ONE Stop: 12/17/24 09:41 Last Infusion: 12/17/24 09:46 Dose: Infused Documented By: Admin: 12/17/24 09:15 Dose: 999 mls/hr Documented By: HAROLDO see above Consultations Consultation(s) initiated? (list below): No Diagnosis Chest Pain Differential Diagnosis: atypical chest pain, costochondritis, chest pain and other (CHF exacerbation, infective endocarditis complication, and alcohol-related cardiomyopathy.) Most likely diagnosis given after review of the tests above:: Shortness of breath Dyspnea Compensated CHF Admission Indicated Admission indicated?: not indicated Admission Request Was there a request for admission?: No Disposition Plan Disposition Plan: Discharge Discharge Attestation Discharge Attestation: The patient and all family members were given an opportunity to ask questions and understood the discharge instructions. Discharge instructions specifically effects, indications for sooner follow up or return to the emergency department, and the expected course of current diagnosis. Patient condition: Stable Discharge Plan Plan Patient Disposition: HOME (Self Care) Patient condition on transfer: Stable Prescriptions/Referrals Prescriptions/Med Rec: No Action levofloxacin 500 mg tablet 500 mg PO QDAY Qty: 4 0RF hydrocortisone 10 mg tablet 10 mg PO BID Qty: 30 0RF benzonatate 100 mg capsule 100 mg PO TID Qty: 14 0RF albuterol sulfate [Ventolin HFA] 90 mcg/actuation HFA aerosol inhaler 2 puff inhalation Q6H PRN (Reason: shortness of breath or wheezing) Qty: 8.5 0RF levothyroxine 100 mcg tablet 100 mcg PO DAILY norethindrone (contraceptive) [Estela] 0.35 mg tablet 0.35 mg PO DAILY Patient Comments: TAKE 1 TABLET BY MOUTH EVERY DAY FOR 28 DAYS bupropion HCl 300 mg tablet extended release 24 hr 300 mg PO DAILY Patient Comments: TAKE 1 TABLET BY MOUTH EVERY DAY IN THE MORNING FOR 30 DAYS Jardiance 10 mg tablet 10 mg PO DAILY Patient Comments: TAKE 1 TABLET BY MOUTH ONCE EVERY MORNING FOR 90 DAYS fludrocortisone 0.1 mg tablet 0.1 mg PO QDAY 30 Days Qty: 30 2RF hydrocortisone 10 mg tablet 10 mg PO QDAY 30 Days Qty: 30 2RF ondansetron 4 mg tablet,disintegrating 4 mg PO Q8H PRN (Reason: nausea and vomiting) Qty: 20 0RF Referrals: No Primary/Family,Physician [Primary Care Provider] - In 1 week Problem List Clinical Impression: Shortness of breath, Dyspnea, Compensated heart failure Patient/Caregiver Discharge Instructions Additional Instructions: Please follow-up with your primary care physician within 2-3 days. Return to the Emergency Department as needed. Print Language: Telugu Stand Alone Forms: Nirmala Award Info., Patient Portal Info Letter
[2024-12-17] MEDS: SODIUM CHLORIDE 0.9% 500 ML 500 ML 999 ML IV (09:15)
[2024-12-17 09:19] LABS: Basophils # (Auto) 0.0 Thou/mm3 (0.0-0.2); Basophils % (Auto) 0 % (0-2.5); Eosinophils # (Auto) 0.2 Thou/mm3 (0.0-0.5); Eosinophils % (Auto) 2 % (0-10); Hematocrit 37.1 % (36.0-46.0); Hemoglobin 13.2 g/dL (12.0-16.0); Immature Granulocytes Auto 0.02 Thou/mm3 (0.00-0.00); Lymphocytes # (Auto) 1.6 Thou/mm3 (1.0-4.8); Lymphocytes % (Auto) 18 % (10-50); Mean Corpuscular HGB Conc 35.6 g/dl (31.0-37.0); Mean Corpuscular Hemoglobin 31.6 pg (25.0-35.0); Mean Corpuscular Volume 89 fL (80-100); Monocytes # (Auto) 0.9 Thou/mm3 (0.0-0.8); Monocytes % (Auto) 10 % (0-12); Neutrophils # (Auto) 6.1 Thou/mm3 (1.8-7.7); Neutrophils % (Auto) 69 % (37-80); Nucleated Red Blood Cell # 0.00 Thou/mm3 (0.00-0.00); Nucleated Red Blood Cell % 0 /100 WBC (0); Platelet Count 267 Thou/mm3 (140-440); RDW Standard Deviation 41.8 fL (36.4-46.3); Red Blood Count 4.18 Miln/mm3 (4.00-5.20); White Blood Count 8.9 Thou/mm3 (3.6-11.0)
[2024-12-17 09:35] LABS: INR 1.0 (0.9-1.3); Partial Thromboplastin Time 28.0 Seconds (22.0-36.0); Prothrombin Time 11.4 Seconds (9.0-12.2)
[2024-12-17 09:38] LABS: Alanine Aminotransferase 10 U/L (10-49); Albumin, Serum 4.6 gm/dL (3.5-5.0); Albumin/Globulin Ratio 1.7 (1.2-2.2); Alcohol, Blood Medical 11.0 mg/dL (0-10.0); Alkaline Phosphatase 63 U/L (46-116); Anion Gap 11 (7-16); Aspartate Amino Transferase 21 U/L (0-34); BUN/Creatinine Ratio 9 Ratio (12-20); Bilirubin,Total 0.6 mg/dL (0.3-1.2); Blood Urea Nitrogen 7 mg/dL (9-23); Calcium 9.2 mg/dL (8.3-10.6); Calcium (Corrected) 9.2 mg/dL (8.5-10.1); Carbon Dioxide 24.6 mMol/L (20.0-31.0); Chloride 103 mMol/L (98-107); Creatinine (Component) 0.8 mg/dL (0.6-1.3); Estimated Creatinine Clearance 99.8 mL/min (>60); Globulin 2.7 gm/dL (2.3-3.5); Glucose 96 mg/dL (74-106); Lipase 31 U/L (12-53); Magnesium 1.2 mg/dL (1.6-2.6); Osmolality,Calculated 275 (275-295); Potassium 3.5 mMol/L (3.4-5.1); Sodium 139 mMol/L (136-145); Total Protein 7.3 gm/dL (5.7-8.2); Troponin I < 0.020 ng/mL (0.0-0.045); eGFR > 60 See Note
[2024-12-17 09:39] LABS: B-Type Natriuretic Peptide < 20 pg/mL (0-100)
[2024-12-17 10:01] LABS: HCG,Qualitative Serum Negative
[2024-12-17 10:41] VITALS: BP 85/63; PULSE 77; RESP 18; TEMP 36.3; O2SAT 99
[2024-12-17 12:20] VITALS: BP 84/65; PULSE 86; RESP 20; TEMP 36.4; O2SAT 99
--- NOTE | 2024-12-17 13:29 | PC.NURSE ---
Pt walked to the bathroom to provide UA sample.
--- NOTE | 2024-12-17 13:48 | PC.NURSE ---
AROUND 1310 WHEN DISCHARGING PT, PT NOTIFIED THIS RN THAT SHE DOES NOT HAVE A RIDE. THIS RN SPOKE WITH NEUROLOGY MANAGER WHO WAS ABLE TO GET PT AN UBER. PT AMBULATED INDEPENDENTLY AT DISCHARGE.
[2024-12-17 13:56] LABS: Amphetamine/Methamp Scrn,U Negative (Negative); Barbiturate Screen,Urine Negative (Negative); Benzodiazepines Screen,Urine Negative (Negative); Benzoylecgonine Screen, Ur Negative (Negative); Fentanyl Screen,Urine Negative (Negative); Opiate Screen,Urine Negative (Negative); THC Screen,Urine Negative (Negative)
== END 2024-12-17 13:49 | disposition home or self-care (01) ==
PROVIDERS: Nurse Practitioner Primary Care; Emergency Provider Family Medicine
DX: I50.9 Heart failure, unspecified (principal); R09.89 Other specified symptoms and signs involving the circulatory and respiratory systems; I45.10 Unspecified right bundle-branch block
CPT/HCPCS: 36415; 71045; 80053; 80307; 80320; 83690; 83735; 83880; 84439; 84443; 84484; 84703; 85025; 85610; 85730; 93005; 96360; 99284; J7999; G0480

== ENCOUNTER 2024-12-21 00:13 | Emergency (ER) | payer MEDICAID, SELFPAY ==
[2024-12-21 00:14] VITALS: BP 90/60; PULSE 106; RESP 18; TEMP 36.9; O2SAT 99; BMI 20.9
[2024-12-21] MEDS: HYDROcodone/APAP 5/325 TABLET 1 TAB PO (01:54)
--- NOTE | 2024-12-21 02:52 | EDNOTE_ITS ---
<Statement entered by Yin Guerra MD - 12/21/24 04:48> As co-signing physician, I was present and available for consult prn. I concur with the plan and care as documented by the midlevel provider. ED Extremity Problem RME/HPI General Chief complaint: Extremity Problem,Nontraumatic Stated complaint: LEFT SHOULDER PAIN FOR A WEEK Time Seen by Provider: 12/21/24 01:39 Arrival date/time: 12/21/24 00:13 24F with history of [place]'s disease, endocarditis, and CHF presents to ED with 1 week of L shoulder pain that radiates to back. Patient was here several days ago with normal cardiac-workup. Patient denies fall/trauma, weakness, and fevers/chills. Limitations: no limitations Related Data Home Medications ?Medication ?Instructions ?Recorded ?Confirmed bupropion HCl 300 mg 24 hr tablet, 300 mg PO DAILY 08/2102/01/23 extended release empagliflozin 10 mg tablet 10 mg PO DAILY 02/01/2308/21 (Jardiance) levothyroxine 100 mcg tablet 100 mcg PO DAILY 02/01/23 02/01/23 norethindrone (contraceptive) 0.35 0.35 mg PO DAILY 02/01/23 mg tablet (Estela) Previous Rx's ?Medication ?Instructions ?Recorded fludrocortisone 0.1 mg tablet 0.1 mg PO QDAY 30 days # 30 tabs 02/05/23 hydrocortisone 10 mg tablet 10 mg PO QDAY 30 days #30 tabs 02/05/23 levofloxacin 500 mg tablet 500 mg PO QDAY #4 tabs 03/03 06/23 hydrocortisone 10 mg tablet 10 mg PO BID #30 tabs 07/30 10/22 albuterol sulfate 90 mcg/actuation 2 puff inhalation Q 6H PRN 10/14/24 aerosol inhaler (Ventolin HFA) shortness of breath or wheezing #8.5 grams benzonatate 100 mg capsule 100 mg PO TID #14 caps 09/29 11/23 ondansetron 4 mg disintegrating 4 mg PO Q8H PRN nausea and 11/25/24 tablet vomiting #20 tabs Allergies Allergy/AdvReac Type Severity Reaction Status Date / Time piperacillin (From Zosyn) Allergy Rash Verified 12/21/24 00:14 tazobactam (From Zosyn) Allergy Rash Verified 12/21/24 00:14 Bee Stings Allergy Unknown SWELLING Uncoded 12/21/24 00:14 Review of Systems Review of Systems Systems Reviewed: All systems reviewed, normal except as documented Constitutional Constitutional: Reports system reviewed and no additional complaints, except as documented, Denies fever(s) and Denies headache(s) ENT Ears, Nose, Mouth, and Throat: Denies disequilibrium and Denies headache(s) Cardiovascular Cardiovascular: Reports system reviewed and no additional complaints, except as documented, Denies chest pain and Denies dyspnea Respiratory Respiratory: Reports system reviewed and no additional complaints, except as documented, Denies cough and Denies dyspnea Gastrointestinal Gastrointestinal: Reports system reviewed and no additional complaints, except as documented, Denies abdominal pain, Denies nausea and Denies vomiting Musculoskeletal Musculoskeletal: Reports as per HPI and Reports arthralgias Neurologic Neurologic: Reports system reviewed and no additional complaints, except as documented, Denies confusion, Denies disequilibrium and Denies headache(s) Psychiatric Psychiatric: Denies confusion Past Medical History Past Medical History NEUROLOGIC: Negative Neurological Disorders CARDIAC: Positive Congestive Heart Failure and Hypotension; Negative Cardiac Disorders RESPIRATORY: Positive Asthma; Negative Chronic Obstructive Pulmonary Disease (COPD) GASTROINTESTINAL: Negative Gastrointestinal Disorders or Hepatitis GENITOURINARY: Negative Genitourinary Disorders or Renal Disease REPRODUCTIVE: Positive Previous Pregnancies; Negative Pelvic Inflammatory Disease MUSCULOSKELETAL: Positive Musculoskeletal Disorders and Scoliosis ENDOCRINE: Positive Endocrine Disorders, [place]'s Disease and Hypothyroidism; Negative Diabetes Mellitus Type 1 or Diabetes Mellitus Type 2 HEMATOLOGIC: Positive Blood Disorders and Anemia; Negative Sickle Cell Disease or Clotting Problems PSYCHO/SOCIAL: Positive Depression and Depression OTHER HISTORY: Positive Hospitalization and Blood Transfusions; Negative Autoimmune Disease, Down Syndrome, Developmental Delay, Shingles, Falls, Blood Transfusion Reaction, Anesthesia Reactions, Organ Transplant, Chemotherapy, Radiation Therapy, Hyperbaric Therapy, MRSA, Vancomycin-Resistant Enterococci, Human Immunodeficiency Virus (HIV), Chicken Pox, Measles, Mumps, Rubella (Turkmen Measles), Pertussis, Clostridium Difficile or Cancer Family History FAMILY HISTORY: Positive Family Psychiatric Problems, Family Cardiac Disorders and Family Cancer; Negative Family Respiratory Disorders, Family Gastrointestinal Problems, Family Surgery or Family Anesthesia Reaction Surgical History SURGICAL: Positive Cardiac Surgery; Negative Section or Organ Transplant Social History SMOKING STATUS: Never smoker SUBSTANCE USE: does not use ED Exam General Limitations: Present no limitations General appearance: Present alert and in no apparent distress Head Head exam: Present atraumatic Eye Eye exam: Present normal appearance, PERRL and EOMI ENT ENT exam: Present normal exam, normal oropharynx and mucous membranes moist Neck Neck exam: Present normal inspection, full ROM and trachea midline Chest Chest inspection: Present normal inspection and symmetric chest wall rise Respiratory Respiratory exam: Present normal lung sounds bilaterally Cardiovascular Cardiovascular exam: Present regular rate, normal rhythm and normal heart sounds Abdominal Exam Abdominal exam: Present soft and normal bowel sounds Extremities Exam Extremities exam: Present normal inspection and full ROM Back Exam Back exam: Present normal inspection and full ROM Neurological Exam Neurological exam: Present alert, oriented X3 and CN II-XII intact Psychiatric Psychiatric exam: Present normal affect and normal mood Skin Skin exam: Present warm, dry, intact and normal color Course Quality Measures none Orders Category Date Time Status HYDROcodone*/APAP 5/325 [[place] 5/325] Med 12/21/24 01:40 Discontinued 1 tab PO X1 ONE Vital Signs Vital signs: Vital Signs Temperature 98.4 F 12/21/24 00:14 Pulse Rate 106 H 12/21/24 00:14 Respiratory Rate 18 12/21/24 00:14 Blood Pressure 90/60 12/21/24 00:14 Pulse Oximetry (%) 99 12/21/24 00:14 Oxygen Delivery Method Room Air 12/21/24 00:14 O2 at 99% on RA and WNLs Extremity Problem MDM Narrative MDM Narrative:: 24F with history of [place]'s disease, endocarditis, and CHF presents to ED with 1 week of L shoulder pain that radiates to back. Patient was here several days ago with normal cardiac-workup. Patient denies fall/trauma, weakness, and fevers/chills. Physical exam reveals no gross RUE abnormalities. Patient is afebrile, calm, and alert. Meds and crisis intervention counselor given. Likely MSK in nature. Patient data External records reviewed:: [facility] previous records Clinical information provided by:: patient Social determinants that could affect healthcare access:: none Patient has the following chronic illnesses:: [place]'s disease, endocarditis, and CHF How is presenting disease/condition affected by chronic disease/condition?: uneffected by Evaluation data The following diagnostics were reviewed and interpreted by me:: other (specify) (none) Lab and/or radiology exams considered but not ordered:: not ordered Interpretation Summary: n/a Medications / Prescriptions Medications or Prescriptions considered but not ordered:: ordered Medication administrations:: Medication Administration History Discontinued Medications Hydrocodone Bitart/Acetaminophen (Hydrocodone/Apap 5/325 Tablet) 1 tab PO X1 ONE Stop: 12/21/24 01:41 Last Admin: 12/21/24 01:54 Dose: 1 tab Documented By: AVA above Consultations Consultation(s) initiated? (list below): No Diagnosis Extremity Problem Differential Diagnosis: herpes zoster, gout, cellulitis, superficial thrombophlebitis, deep venous thrombosis of upper extremity, lower extremity edema, deep vein thrombosis of lower extremity and other (shoulder pain) Most likely diagnosis given after review of the tests above:: shoulder pain Admission Indicated Admission indicated?: not indicated Admission Request Was there a request for admission?: No Disposition Plan Disposition Plan: Discharge Discharge Attestation Discharge Attestation: The patient and all family members were given an opportunity to ask questions and understood the discharge instructions. Discharge instructions specifically effects, indications for sooner follow up or return to the emergency department, and the expected course of current diagnosis. Patient condition: Stable Discharge Plan Plan Patient Disposition: HOME (Self Care) Discharge Disposition comment: Stable Prescriptions/Referrals Prescriptions/Med Rec: No Action levofloxacin 500 mg tablet 500 mg PO QDAY Qty: 4 0RF hydrocortisone 10 mg tablet 10 mg PO BID Qty: 30 0RF benzonatate 100 mg capsule 100 mg PO TID Qty: 14 0RF albuterol sulfate [Ventolin HFA] 90 mcg/actuation HFA aerosol inhaler 2 puff inhalation Q6H PRN (Reason: shortness of breath or wheezing) Qty: 8.5 0RF levothyroxine 100 mcg tablet 100 mcg PO DAILY norethindrone (contraceptive) [Estela] 0.35 mg tablet 0.35 mg PO DAILY Patient Comments: TAKE 1 TABLET BY MOUTH EVERY DAY FOR 28 DAYS bupropion HCl 300 mg tablet extended release 24 hr 300 mg PO DAILY Patient Comments: TAKE 1 TABLET BY MOUTH EVERY DAY IN THE MORNING FOR 30 DAYS Jardiance 10 mg tablet 10 mg PO DAILY Patient Comments: TAKE 1 TABLET BY MOUTH ONCE EVERY MORNING FOR 90 DAYS fludrocortisone 0.1 mg tablet 0.1 mg PO QDAY 30 Days Qty: 30 2RF hydrocortisone 10 mg tablet 10 mg PO QDAY 30 Days Qty: 30 2RF ondansetron 4 mg tablet,disintegrating 4 mg PO Q8H PRN (Reason: nausea and vomiting) Qty: 20 0RF Problem List Clinical Impression: Acute shoulder pain Patient/Caregiver Discharge Instructions Education Materials: ED Shoulder Pain, Uncertain Cause Additional Instructions: Please follow-up with PCP within 24-48 hours and return immediately if symptoms worsen. If problem persists, recommend outpatient PT and/or MRI follow-up. In the meantime, rest, use ice/heat, and/or compression. Print Language: Arabic Stand Alone Forms: Patient Portal Info Letter PA/CLIENT SUPPORT ANALYST Supervising Physician PA/CLIENT SUPPORT ANALYST Supervising Physician: Dr. Guerra
== END 2024-12-21 01:56 | disposition home or self-care (01) ==
LOC: SERX 03:15
PROVIDERS: Emergency Provider Emergency Medicine; PCP Family Medicine
DX: M25.512 Pain in left shoulder (principal)
CPT/HCPCS: 99282; A9270

== ENCOUNTER 2025-03-24 02:58 | Emergency (ER) | payer MEDICAID, SELFPAY ==
[2025-03-24 02:59] VITALS: BMI 21.7
[2025-03-24 03:02] VITALS: BP 97/66; PULSE 90; RESP 18; TEMP 37; O2SAT 97
[2025-03-24 03:07] VITALS: BMI 21.7
--- NOTE | 2025-03-24 03:22 | EDRME_ITS ---
Rapid Medical Screening Exam [facility] Arrival date/time: 03/24/25 02:58 24F with history of [place]'s disease, endocarditis, and CHF presents to ED with several days of worsening fatigue, PICKERING, and N/V. Patient has not been taking her meds for about 1 week. Patient has her list of regular meds. Chief Complaint: General Adult/Misc Complain Vital signs: Vital Signs Temperature 98.6 F 03/24/25 03:02 Pulse Rate 90 03/24/25 03:02 Respiratory Rate 18 03/24/25 03:02 Blood Pressure 97/66 03/24/25 03:02 Pulse Oximetry (%) 97 03/24/25 03:02 Oxygen Delivery Method Room Air 03/24/25 03:02 Exam: Fatigued Clinical Impression: Adrenal insufficiency vs gastroenteritis vs URI vs drug use vs vs hypothyroidism
[2025-03-24 03:49] LABS: Collection Type, Urine Clean Catch
[2025-03-24 03:50] LABS: Basophils # (Auto) 0.0 Thou/mm3 (0.0-0.2); Basophils % (Auto) 1 % (0-2.5); Eosinophils # (Auto) 0.1 Thou/mm3 (0.0-0.5); Eosinophils % (Auto) 3 % (0-10); Hematocrit 36.7 % (36.0-46.0); Hemoglobin 13.3 g/dL (12.0-16.0); Immature Granulocytes Auto 0.00 Thou/mm3 (0.00-0.00); Lymphocytes # (Auto) 1.6 Thou/mm3 (1.0-4.8); Lymphocytes % (Auto) 33 % (10-50); Mean Corpuscular HGB Conc 36.2 g/dl (31.0-37.0); Mean Corpuscular Hemoglobin 30.6 pg (25.0-35.0); Mean Corpuscular Volume 85 fL (80-100); Monocytes # (Auto) 0.5 Thou/mm3 (0.0-0.8); Monocytes % (Auto) 9 % (0-12); Neutrophils # (Auto) 2.6 Thou/mm3 (1.8-7.7); Neutrophils % (Auto) 55 % (37-80); Nucleated Red Blood Cell # 0.00 Thou/mm3 (0.00-0.00); Nucleated Red Blood Cell % 0 /100 WBC (0); Platelet Count 275 Thou/mm3 (140-440); RDW Standard Deviation 39.6 fL (36.4-46.3); Red Blood Count 4.34 Miln/mm3 (4.00-5.20); White Blood Count 4.8 Thou/mm3 (3.6-11.0)
[2025-03-24 03:56] LABS: HCG Qualitative,Urine Negative
[2025-03-24 03:58] LABS: Bacteria,Urine Rare; Bilirubin,Urine Negative (Negative); Blood,Urine Negative (Negative); Clarity,Urine Clear (Clear/Hazy); Color,Urine Yellow (Lt Yel-Yel); Culture Indicated,Urine Not Indicated; Glucose, Urine 4+ (Negative); Ketones,Urine Negative (Negative); Leukocyte Esterase,Urine Negative (Negative); Nitrite,Urine Negative (Negative); PH,Urine 6.0 (5.0-7.0); Protein,Urine Negative (Neg - Trace); RBC,Urine 4 /hpf (0-3); Specific Gravity,Urine 1.028 (1.001-1.035); Squamous Epithelial Cell,Urine 1 /hpf (0-5); Urobilinogen,Urine 4.0 mg/dL (0.0-1.0); WBC,Urine 2 /hpf (0-5)
[2025-03-24 04:24] LABS: Alanine Aminotransferase 58 U/L (10-49); Albumin, Serum 4.7 gm/dL (3.5-5.0); Albumin/Globulin Ratio 1.8 (1.2-2.2); Alkaline Phosphatase 106 U/L (46-116); Anion Gap 8 (7-16); Aspartate Amino Transferase 54 U/L (0-34); BUN/Creatinine Ratio 10 Ratio (12-20); Bilirubin,Total 0.5 mg/dL (0.3-1.2); Blood Urea Nitrogen 9 mg/dL (9-23); Calcium 9.2 mg/dL (8.3-10.6); Calcium (Corrected) 9.2 mg/dL (8.5-10.1); Carbon Dioxide 25.9 mMol/L (20.0-31.0); Chloride 105 mMol/L (98-107); Creatinine (Component) 0.9 mg/dL (0.6-1.3); Estimated Creatinine Clearance 88.7 mL/min (>60); Free T4 (Free Thyroxine) 0.84 ng/dL (0.89-1.76); Globulin 2.6 gm/dL (2.3-3.5); Glucose 97 mg/dL (74-106); Osmolality,Calculated 276 (275-295); Potassium 3.9 mMol/L (3.4-5.1); Sodium 139 mMol/L (136-145); Thyroid Stimulating Hormone 17.87 uIU/mL (0.55-4.78); Total Protein 7.3 gm/dL (5.7-8.2); eGFR > 60 See Note
--- NOTE | 2025-03-24 04:55 | PD.EDADULT ---
ED General RME/HPI General Chief complaint: General Adult/Misc Complain Stated complaint: WEAK HEADACHE AND NAUSEA Arrival date/time: 03/24/25 02:58 RME / HPI RME / HPI narrative: 03/24/25 02:58 24F with history of Woodbury's disease, endocarditis, and CHF presents to ED with several days of worsening fatigue, PICKERING, and N/V. Patient has been taking her meds for about 1 week. Patient has her list of regular meds. Dr. 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 Patient states she has not been taking any of her medications (including her steroids) for the last 2 weeks because she forgets to take them . Patient denies any N/V, fever, chills, or any other associated symptoms. Related Data Home Medications ?Medication ?Instructions ?Recorded ?Confirmed bupropion HCl 300 mg 24 hr tablet, 300 mg PO DAILY 02/01/23 02/01/23 extended release empagliflozin 10 mg tablet 10 mg PO DAILY 02/01/23 02/01/23 (Jardiance) levothyroxine 100 mcg tablet 100 mcg PO DAILY 02/01/23 02/01/23 norethindrone (contraceptive) 0.35 0.35 mg PO DAILY 02/01/23 02/01/23 mg tablet (Estela) Previous Rx's ?Medication ?Instructions ?Recorded fludrocortisone 0.1 mg tablet 0.1 mg PO QDAY 30 days #30 tabs 02/05/23 hydrocortisone 10 mg tablet 10 mg PO QDAY 30 days #30 tabs 02/05/23 levofloxacin 500 mg tablet 500 mg PO QDAY #4 tabs 03/31/23 hydrocortisone 10 mg tablet 10 mg PO BID #30 tabs 08/14/23 albuterol sulfate 90 mcg/actuation 2 puff inhalation Q6H PRN 10/14/24 aerosol inhaler (Ventolin HFA) shortness of breath or wheezing #8.5 grams benzonatate 100 mg capsule 100 mg PO TID #14 caps 10/14/24 ondansetron 4 mg disintegrating 4 mg PO Q8H PRN nausea and 11/25/24 tablet vomiting #20 tabs fludrocortisone 0.1 mg tablet 0.1 mg PO QDAY #30 tabs 03/24/25 hydrocortisone 10 mg tablet 10 mg PO BID #60 tabs 03/24/25 levothyroxine 100 mcg capsule 100 mcg PO QDAY #30 caps 03/24/25 Allergies Allergy/AdvReac Type Severity Reaction Status Date / Time piperacillin (From Zosyn) Allergy Rash Verified 03/24/25 03:03 tazobactam (From Zosyn) Allergy Rash Verified 03/24/25 03:03 Bee Stings Allergy Unknown SWELLING Uncoded 03/24/25 03:03 Review of Systems Review of Systems Systems Reviewed: All systems reviewed, normal except as documented Past Medical History Past Medical History NEUROLOGIC: Negative Neurological Disorders CARDIAC: Positive Congestive Heart Failure and Hypotension; Negative Cardiac Disorders RESPIRATORY: Positive Asthma; Negative Chronic Obstructive Pulmonary Disease (COPD) GASTROINTESTINAL: Negative Gastrointestinal Disorders or Hepatitis GENITOURINARY: Negative Genitourinary Disorders or Renal Disease REPRODUCTIVE: Positive Previous Pregnancies; Negative Pelvic Inflammatory Disease MUSCULOSKELETAL: Positive Musculoskeletal Disorders and Scoliosis ENDOCRINE: Positive Endocrine Disorders, Jose Ramon's Disease and Hypothyroidism; Negative Diabetes Mellitus Type 1 or Diabetes Mellitus Type 2 HEMATOLOGIC: Positive Blood Disorders and Anemia; Negative Sickle Cell Disease or Clotting Problems PSYCHO/SOCIAL: Positive Depression and Depression OTHER HISTORY: Positive Hospitalization and Blood Transfusions; Negative Autoimmune Disease, Down Syndrome, Developmental Delay, Shingles, Falls, Blood Transfusion Reaction, Anesthesia Reactions, Organ Transplant, Chemotherapy, Radiation Therapy, Hyperbaric Therapy, MRSA, Vancomycin-Resistant Enterococci, Human Immunodeficiency Virus (HIV), Chicken Pox, Measles, Mumps, Rubella ([place] Measles), Pertussis, Clostridium Difficile or Cancer Family History FAMILY HISTORY: Positive Family Psychiatric Problems, Family Cardiac Disorders and Family Cancer; Negative Family Respiratory Disorders, Family Gastrointestinal Problems, Family Surgery or Family Anesthesia Reaction Surgical History SURGICAL: Positive Cardiac Surgery; Negative Section or Organ Transplant Social History SMOKING STATUS: Never smoker SUBSTANCE USE: does not use ED Exam Narrative Physical exam: Generally patient is alert and in no obvious distress, heart regular rate and rhythm, lungs clear to auscultation equal bilaterally, abdomen soft bowel sounds present's and nontender, neurologic exam [place] Coma Scale is 15, skin is warm and dry Course Quality Measures none Orders Category Date Time Status Insert IV NOW Care 03/24/25 03:21 Active CBC Stat Lab 03/24/25 03:39 Completed CMP [Comprehensive Metabolic Panel] Stat Lab 03/24/25 03:39 Completed Free T4 (Free Thyroxine) Stat Lab 03/24/25 03:39 Completed HCG Qualitative,Urine Stat Lab 03/24/25 03:31 Completed TSH [Thyroid Stimulating Hormone] Stat Lab 03/24/25 03:39 Completed Urinalysis, C/S if Indicated Stat Lab 03/24/25 03:31 Completed Hydrocortisone Sod Succ Inj [SoluCORTEF Inj] Med 03/24/25 03:21 Discontinued 100 mg IV X1 ONE Ondansetron Inj [Zofran Inj] Med 03/24/25 03:21 Discontinued 4 mg IV X1 ONE Sodium Chloride 0.9% 1000 ml [Ns] 1,000 ml Med 03/24/25 03:21 Discontinued IV 999 mls/hr Vital Signs Vital signs: Vital Signs Temperature 98.6 F 03/24/25 03:02 Pulse Rate 90 03/24/25 03:02 Respiratory Rate 18 03/24/25 03:02 Blood Pressure 97/66 03/24/25 03:02 Pulse Oximetry (%) 97 03/24/25 03:02 Oxygen Delivery Method Room Air 03/24/25 03:02 Discharge Plan Plan Patient Disposition: HOME (Self Care) Prescriptions/Referrals Prescriptions/Med Rec: New hydrocortisone 10 mg tablet 10 mg PO BID Qty: 60 0RF fludrocortisone 0.1 mg tablet 0.1 mg PO QDAY Qty: 30 0RF levothyroxine 100 mcg capsule 100 mcg PO QDAY Qty: 30 0RF No Action levofloxacin 500 mg tablet 500 mg PO QDAY Qty: 4 0RF hydrocortisone 10 mg tablet 10 mg PO BID Qty: 30 0RF benzonatate 100 mg capsule 100 mg PO TID Qty: 14 0RF albuterol sulfate [Ventolin HFA] 90 mcg/actuation HFA aerosol inhaler 2 puff inhalation Q6H PRN (Reason: shortness of breath or wheezing) Qty: 8.5 0RF levothyroxine 100 mcg tablet 100 mcg PO DAILY norethindrone (contraceptive) [Estela] 0.35 mg tablet 0.35 mg PO DAILY Patient Comments: TAKE 1 TABLET BY MOUTH EVERY DAY FOR 28 DAYS bupropion HCl 300 mg tablet extended release 24 hr 300 mg PO DAILY Patient Comments: TAKE 1 TABLET BY MOUTH EVERY DAY IN THE MORNING FOR 30 DAYS Jardiance 10 mg tablet 10 mg PO DAILY Patient Comments: TAKE 1 TABLET BY MOUTH ONCE EVERY MORNING FOR 90 DAYS fludrocortisone 0.1 mg tablet 0.1 mg PO QDAY 30 Days Qty: 30 2RF hydrocortisone 10 mg tablet 10 mg PO QDAY 30 Days Qty: 30 2RF ondansetron 4 mg tablet,disintegrating 4 mg PO Q8H PRN (Reason: nausea and vomiting) Qty: 20 0RF Referrals: No Primary/Family,Physician [Primary Care Provider] - In 1 week Problem List Clinical Impression: Woodbury's disease, Hypothyroidism Patient/Caregiver Discharge Instructions Education Materials: When You Have Woodbury Disease, ED Hypothyroidism Additional Instructions: You must take your medication as prescribed. Follow-up with your doctor. Return to ER as needed or if condition worsens. Print Language: Khmer Stand Alone Forms: Nirmala Award Info., Patient Portal Info Letter MDM Narrative MDM hospital course (for use when minimal MDM required): Scribe Attestation: 03/24/25 - Samina Garcia am scribing for and in the presence of Dr. Busch. Patient has been off of her hydrocortisone Florinef and thyroid medication for weeks. Here in the emergency room she received hydrocortisone 100 mg IV and was hydrated with a liter normal saline. Patient will be restarted on her Florinef hydrocortisone and levothyroxine to be taken as prescribed. She has to follow-up with her doctor. Return to ER as needed or if condition worsens. I interpreted all labs. 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, Woodbury's disease EKG EKG not done Labs Labs: interpreted by me Imaging Imaging interpretation: none Medication Administration(s) Medication Administration History Discontinued Medications Hydrocortisone Sodium Succinate (Hydrocortisone Sod Succ Inj 100 Mg 2 Ml Vial) 100 mg IV X1 ONE Stop: 03/24/25 03:22 Last Admin: 03/24/25 05:04 Dose: 100 mg Documented By: WO Sodium Chloride (Ns) 1,000 mls @ 999 mls/hr IV .Q1H1M ONE Stop: 03/24/25 04:21 Last Admin: 03/24/25 05:04 Dose: 999 mls/hr Documented By: EDGARDO Ondansetron HCl (Ondansetron Inj 2 Mg/Ml Inj 2 Ml) 4 mg IV X1 ONE; Protocol Stop: 03/24/25 03:22 see above Diagnosis Differential Diagnosis ED Complaint MDM: See MDM
[2025-03-24] MEDS: HYDROCORTISONE SOD SUCC INJ 100 MG 2 ML VIAL IV (05:04)
[2025-03-24] MEDS: SODIUM CHLORIDE 0.9% 1000 ML 1,000 ML 999 ML IV (05:04)
[2025-03-24 05:52] VITALS: BP 99/63; PULSE 68; RESP 18; TEMP 36.5; O2SAT 100
[2025-03-24] MEDS: ONDANSETRON INJ 2 MG/ML INJ 2 ML 4 MG IV (05:57)
== END 2025-03-24 06:14 | disposition home or self-care (01) ==
PROVIDERS: Physician Assistant; Emergency Provider Emergency Medicine
DX: E27.1 Primary adrenocortical insufficiency (principal); E03.9 Hypothyroidism, unspecified; I50.9 Heart failure, unspecified; Z79.84 Long term (current) use of oral hypoglycemic drugs; Z79.890 Hormone replacement therapy
CPT/HCPCS: 36415; 80053; 81001; 81025; 84439; 84443; 85025; 96361; 96374; 99283; J1720; J2405; J7030